=== PATIENT | male | born 1970 | race Caucasian/White ===

== ENCOUNTER 2023-08-08 11:56 | Day surgery (SDC) | payer OTHER, SELFPAY ==
[2023-08-06 14:22] VITALS: BMI 27.2
--- NOTE | 2023-08-07 09:57 | P.CONAN_ITS ---
Documented by User: Maureen Soto NP 08/07/23 09:57 HPI - Anesthesia Eval Consult details Narrative: 53yo M for Colonoscopy [facility] Past Medical History Medical History Elevated cholesterol Surgical History Surgical History Hx of hernia repair H/O colonoscopy Social History Social History (Updated 08/06/23 @ 14:21 by Martita Pichardo, LEATHA) Patient Tobacco Use Status: Never used Tobacco Use of substances other than those prescribed or required for medical reasons: No Are you DNR?: No Advance Directives: No Advance Directives Information Provided: Yes Meds Allergies Allergy/AdvReac Type Severity Reaction Status Date / Time No Known Allergies Allergy Unverified 01/01/20 17:36 Home Medications ?Medication ?Instructions ?Recorded ?Confirmed ?Last Taken ?Type cholecalciferol (vitamin D3) 25 25 mcg PO DAILY 08/06/23 08/06/23 Unknown History mcg (1,000 unit) capsule (Vitamin D3) Exam Height,Weight and Vital Signs: Height 6 ft 1 in Weight 93.44 kg Assessment and Plan Assessment Anesthesia Assessment: Chart Reviewed Documented by User: Hermilo Brizuela MD 08/08/23 12:50 [facility] Past Medical History Medical History Elevated cholesterol Family History Family history of problems with anesthesia: No Surgical History Surgical History Hx of hernia repair H/O colonoscopy History of Problems with Anesthesia: No Social History Social History (Updated 08/06/23 @ 14:21 by Martita Pichardo RN) Patient Tobacco Use Status: Never used Tobacco Use of substances other than those prescribed or required for medical reasons: No Are you DNR?: No Advance Directives: No Advance Directives Information Provided: Yes Meds Allergies Allergy/AdvReac Type Severity Reaction Status Date / Time No Known Allergies Allergy Unverified 01/01/20 17:36 Home Medications ?Medication ?Instructions ?Recorded ?Confirmed ?Last Taken ?Type cholecalciferol (vitamin D3) 25 25 mcg PO DAILY 08/06/23 08/06/23 Unknown History mcg (1,000 unit) capsule (Vitamin D3) Exam Airway Mallampati Class: I TM Dist: >3cm Neck ROM: Full Loose/Missing/Broken Teeth: No Heart: ok Lungs: ok Assessment and Plan Assessment Anesthesia Assessment: Anesthesia Plan Discussed Final Anesthetic Review Family History of Problems with Anesthesia: No History of Problems with Anesthesia: No NPO: Yes ASA Class: II Final Preanesthetic Review: No Changes in Pt Med Stat, Meds/Allgs Chart Reviewed, Consent Obtained/Reviewed and Anes Risks/Benef Reviewed Patient Risk: Intermediate Procedure Risk: Low Anesthetic Plan Anesthetic Plan: MAC: and Agree w/ Assess. and Plan Disposition: Standard PACU
[2023-08-08 12:07] VITALS: BMI 27.5
[2023-08-08 12:11] VITALS: BMI 27.5
[2023-08-08 12:25] VITALS: BP 127/76; PULSE 80; RESP 16; TEMP 36.4; O2SAT 96
[2023-08-08] MEDS: Lactated Ringers 1,000 ML 100 ML IVCONT (12:33)
--- NOTE | 2023-08-08 12:56 | MHC.SHP ---
Pre-Procedural Eval Section A - 24 Hr Update-Section A only Date of Service: 08/08/23 The patient is an INPATIENT: No Changes since office visit: No Cold of Flu in the past 2 weeks, No New Medical Problems, No Changes in Medication and No Patient answered all questions The patient has been examined within 24 hours of the surgical procedure. The History & Physical has been completed within 30 days and I have reviewed it.: Yes Section B - Complete if H&P > 30 days Chief Complaint: Family history of malignant neoplasm of digestive Allergies: Allergies Allergy/AdvReac Type Severity Reaction Status Date / Time No Known Allergies Allergy Unverified 01/01/20 17:36 Plan I have reviewed the history and physical and performed a pertinent physical examination on my patient. No changes have occurred unless specified. Time Spent With Patient Time: Total time managing care of this patient today ____ minutes.
[2023-08-08 13:32] VITALS: BP 119/79; PULSE 84; RESP 16; TEMP 36.6; O2SAT 96
[2023-08-08 13:56] VITALS: BP 116/70; PULSE 74; RESP 18; TEMP 36.1; O2SAT 98
--- NOTE | 2023-08-08 14:37 | OP_ITS ---
DATE OF SERVICE: 08/08/2023 SURGEON: Estevan Neville MD INDICATIONS: Family history of colon cancer. PREOPERATIVE DIAGNOSIS: POSTOPERATIVE DIAGNOSIS: PROCEDURE PERFORMED: Colonoscopy to the terminal ileum. ESTIMATED BLOOD LOSS: COMPLICATIONS: ANESTHESIA: Monitored anesthesia care. ASSISTANTS: SPECIMENS: DESCRIPTION OF PROCEDURE: A history and physical was performed. The risks and benefits of the procedure were explained to the patient and informed consent was obtained. The patient was placed in the left lateral decubitus position. A digital rectal exam was performed and was found to be normal. The Olympus pediatric video colonoscope was introduced into the rectum and advanced to the cecum. The cecum was identified by transillumination, palpation, and identification of ileocecal valve. Examination was performed and the scope was removed. He tolerated the procedure well and was taken to recovery area in stable condition. FINDINGS: The terminal ileum was examined and appeared normal. The visualized colonic mucosa was within normal limits without evidence of masses or ulcers. No polyps were identified except in the rectum, where there were several small hyperplastic-appearing polyps that were not biopsied. There was some nonspecific minor erythema in the rectum, which was biopsied, but did not appear consistent with an acute proctitis. This may have been related to the prep. Retroflexed examination showed small internal hemorrhoids. IMPRESSION: Normal colonoscopy. RECOMMENDATIONS: 1. Follow up the biopsy results. 2. Repeat colonoscopy is recommended in 5 years for family history of colon cancer. MD BEULAH Bedolla/MODL / [id number]
== END 2023-08-08 14:28 | disposition home or self-care (01) ==
PROVIDERS: PCP Internal Medicine; Visit Provider Internal Medicine Gastroenterology
PROC: 0DJD8ZZ Inspection of Lower Intestinal Tract, Via Natural or Artificial Opening Endoscopic (ICD-10-PCS; CPT 45378; principal; 2023-08-08 13:00)
DX: Z12.11 Encounter for screening for malignant neoplasm of colon (principal); Z80.0 Family history of malignant neoplasm of digestive organs; K64.8 Other hemorrhoids; E78.5 Hyperlipidemia, unspecified; E55.9 Vitamin D deficiency, unspecified
CPT/HCPCS: 45380; 88305; J2704